=== PATIENT | male | born 1965 | race Two or more races ===

== ENCOUNTER 2020-06-10 11:03 | Emergency (ER) | payer BC ==
[~2020-06-10] VITALS: Ht 170.2 cm; Wt 111.1 kg
--- NOTE | 2020-06-10 11:59 | NUR ---
BIB [facility] 58 FROM AN URGENT CARE DUE TO ABNORMAL CXR, TESTED POSITIVE FOR COVID ON 05/31/20. PT AAOX4, RR EVEN & UNALBORED. DENIES CP, DIZZINESS, N/V/D AT THIS TIME. PT SEEN & EVAL'D BY DR. MCMAHAN. PLACED ON [employer], NSR. WILL CONT TO MONITOR.
[2020-06-10 12:12] LABS: BASOPHILS # (AUTO) 0.1 /CMM (0.0-0.2); EOSINOPHILS % (AUTO) 1.7 % (0.0-6.0); HEMATOCRIT 39 % (39-51); HEMOGLOBIN 12.6 g/dL (13.5-17.5); LYMPHOCYTES # (AUTO) 1.5 /CMM (0.8-4.8); LYMPHOCYTES % (AUTO) 12.4 % (20.0-44.0); MEAN CORPUSCULAR HGB CONC 33 g/dl (31.0-36.0); MEAN CORPUSCULAR VOLUME 81 fL (80-96); MONOCYTES # (AUTO) 0.8 /CMM (0.1-1.30); MONOCYTES % (AUTO) 6.2 % (2.0-12.0); NEUTROPHILS # (AUTO) 9.7 /CMM (1.8-8.9); NEUTROPHILS % (AUTO) 78.7 % (43.0-81.0); PLATELET COUNT (AUTO) 536 /CMM (150-450); RED BLOOD CELL COUNT(AUTO) 4.74 MIL/uL (4.5-6.0); WHITE BLOOD COUNT (AUTO) 12.3 K/uL (4.3-11.0)
[2020-06-10 12:20] LABS: CALCIUM, SERUM 8.8 mg/dL (8.5-10.1); CARBON DIOXIDE 25 mmol/L (21-32); CHLORIDE 101 mmol/L (98-107); CREATININE 1.1 mg/dL (0.6-1.3); GLUCOSE 93 mg/dL (74-106); POTASSIUM 4.3 mmol/L (3.5-5.1); SODIUM SERUM 135 mmol/L (136-145); UREA NITROGEN, BLOOD 12 mg/dL (7-18)
[2020-06-10 12:31] LABS: ALANINE AMINOTRANSFERASE 49 U/L (12-78); ALBUMIN 2.7 g/dL (3.4-5.0); ALKALINE PHOSPHATASE 75 U/L (46-116); ASPARTATE AMINOTRANSFERASE 32 U/L (15-37); B-TYPE NATRIURETIC PEPTIDE 236 PG/ML (0-125); BILIRUBIN,TOTAL 0.4 mg/dL (0.2-1.0); TOTAL PROTEIN, SERUM 7.4 g/dL (6.4-8.2)
[2020-06-10 12:34] LABS: ABG BASE EXCESS 1.8 mmol/L; ABG OXYGEN SATURATION 91.3 % (92.0-98.5); ABG PCO2 40.5 mmHg (35.0-45.0); ABG PH 7.429 (7.350-7.450); ABG PO2 61.6 mmHg (75.0-100.0); AaDO2 39.6 mmHg; COHb 0.9 % (0.5-1.5); MetHb 0.4 % (0.0-1.5); O2Hb 90.1 % (94.0-97.0); SITE, ABG Left Radial; VENT MODE, BG RA
[2020-06-10 12:46] LABS: D-DIMER 1.07 mg/L(FEU (0.17-0.50)
[2020-06-10 13:05] LABS: BAND % (MANUAL) 5 % (0.0-5.0); EOSINOPHILS % (MANUAL) 3 % (0-4); LYMPHOCYTES % (MANUAL) 13 % (16-48); METAMYELOCYTES % 1 % (0-0); MONOCYTES % (MANUAL) 6 % (0-11.0); MYELOCYTES % 4 % (0-0); NEUTROPHILS % (MANUAL) 68 (42-76)
[2020-06-10 13:23] LABS: CREATINE KINASE, TOTAL 75 U/L (39-308); FERRITIN 617 ng/mL (8-388)
[2020-06-10 13:45] LABS: C-REACTIVE PROTEIN 25.8 mg/dL (0.0-0.9)
[2020-06-10 14:32] VITALS: BP 140/78
--- NOTE | 2020-06-10 14:32 | NUR ---
Patient discharged to home in stable condition. Written and verbal after care instructions given. Patient verbalizes understanding of instruction. IV removed. Catheter intact and site benign. Pressure and 4x4 applied to site. No bleeding noted.
== END 2020-06-10 14:33 | disposition home or self-care (01) ==
LOC: ER 11:04
DX: U07.1 COVID-19 (principal); J12.89 Other viral pneumonia; I10 Essential (primary) hypertension
CPT/HCPCS: 36415; 36600; 71045-TC; 71250-TC; 80053-TC; 82550-TC; 82728-TC; 82803-TC; 83605-TC; 83615-TC; 83880; 84484-TC; 85025-TC; 85378-TC; 85385-TC; 85730-TC; 86140-TC; 87040-TC